=== PATIENT | female | born 1995 | race Caucasian/White ===

== ENCOUNTER 2021-10-30 21:30 | Emergency (ER) | payer BC ==
[~2021-10-30] VITALS: Ht 175.3 cm; Wt 66.0 kg
[2021-10-30] MEDS ORDERED: LIDOCAINE HCL 1% 10 MG/ML 10ML VIAL INJ NR (22:30)
[2021-10-30] MEDS ORDERED: TETANUS, DIPHTHERIA, PERTUSSIS VAC/PF 0.5ML (>10YR OLD) IM ONE (22:30)
[2021-10-30] MEDS ORDERED: LIDOCAINE HCL/PF 1% 10 MG/ML 5ML VIAL INFIL ONE (22:30)
[2021-10-30] MEDS ORDERED: BACITRACIN ZINC OINT UDPKT TOP ONE (22:30)
[2021-10-30] MEDS ORDERED: ACETAMINOPHEN 325MG TABLET PO ONE (22:30)
[2021-10-31] MEDS ORDERED: LIDOCAINE HCL 1% 10 MG/ML 10ML VIAL INJ SCH (01:30)
[2021-10-31] MEDS ORDERED: ACETAMINOPHEN 325MG TABLET PO SCH (01:30)
[2021-10-31] MEDS ORDERED: BACITRACIN ZINC OINT UDPKT TOP SCH (01:30)
[2021-10-31] MEDS ORDERED: TETANUS, DIPHTHERIA, PERTUSSIS VAC/PF 0.5ML (>10YR OLD) IM ONE (02:00)
[2021-10-31 02:28] VITALS: BP 115/66
== END 2021-10-31 02:30 | disposition home or self-care (01) ==
LOC: ER 21:30
DX: S61.213A Laceration without foreign body of left middle finger without damage to nail, initial encounter (principal); W26.0XXA Contact with knife, initial encounter; Y93.G3 Activity, cooking and baking; Y92.010 Kitchen of single-family (private) house as the place of occurrence of the external cause
CPT/HCPCS: 12001; 90471; 90715; 99283; J3490